=== PATIENT | female | born 1945 | race Caucasian/White ===

== ENCOUNTER 2018-10-05 14:24 | Emergency (ER) | payer MEDICARE ==
[~2018-10-05] VITALS: Ht 165.1 cm; Wt 62.9 kg
[2018-10-05] MEDS ORDERED: LOSA25TA14 PO (14:32)
[2018-10-05] MEDS ORDERED: ATOR40TA75 PO (14:32)
--- NOTE | 2018-10-05 15:53 | REP ---
Right lower extremity Duplex Doppler venous ultrasound: Real time compression and duplex Doppler interrogation of the right lower extremity deep venous system is performed. The right common femoral, superficial femoral and popliteal veins are fully compressible with transducer pressure and demonstrate normal spontaneous and phasic flow, without evidence of deep venous thrombosis. Impression: No evidence of deep venous thrombosis of the right lower extremity femoral popliteal venous system. Electronically Signed by Damon Nieto MD 10/05/2018 03:44 P
[2018-10-05 16:19] VITALS: BP 128/65
== END 2018-10-05 16:26 | disposition home or self-care (01) ==
LOC: M ED 14:24
DX: M25.561 Pain in right knee (principal); M79.661 Pain in right lower leg; I10 Essential (primary) hypertension; E78.5 Hyperlipidemia, unspecified; Z79.899 Other long term (current) drug therapy

== ENCOUNTER → 2023-07-21 | Outpatient (REF) | payer MEDICARE ==
[~2023-07-21] MED LIST: ATOR40TA75 PO; LOSA25TA13 PO
== END ==
LOC: M LAB REF 16:23
PROVIDERS: ATTEND Nurse Practitioner Family
DX: R30.0 Dysuria (principal)

== ENCOUNTER → 2023-10-06 | Outpatient (REF) | payer MEDICARE | LOC: M LAB REF 16:20 | PROVIDERS: ATTEND Physician Assistant | DX: R30.0 Dysuria (principal) ==